=== PATIENT | male | born 2000 | race Caucasian/White ===

== ENCOUNTER 2023-06-19 07:14 | Emergency (ER) | payer OTHER, BC ==
[~2023-06-19] VITALS: Ht 190.5 cm; Wt 165.5 kg
[2023-06-19 07:25] VITALS: BP 131/92
[2023-06-19 07:44] LABS: BASO% 0.5 % (0-3); EOS% 6.3 % (0-8); HEMOGLOBIN 14.3 g/dl (14.0-18.0); IMMATURE GRANULOCYTES 0.2 % (0.0-5.0); LYMPH% 26.5 % (15-41); MEAN CELL VOLUME 91.3 fL CALC (80.0-100.0); MEAN CORPUSCULAR HGB 29.7 pG CALC (26.0-32.0); MEAN CORPUSCULAR HGB CONC 32.5 g/dL CAL (32.0-36.0); NEUT# 3.56 thou/uL (1.82-7.42); NEUT% 57.5 % (42-76); RED BLOOD COUNT 4.82 mill/uL (4.70-6.10); RED CELL DISTRI WIDTH 11.9 % (11.5-15.5)
[2023-06-19 08:01] LABS: ALBUMIN 4.3 g/dL (3.2-5.0); ALKALINE PHOSPHATASE 84 u/l (38-126); ANION GAP 14 (6-22 (CALC)); BILIRUBIN, TOTAL 0.3 mg/dL (0.2-1.3); BUN 14 mg/dL (9-20); BUN/CREATININE RATIO 20 (12-20 (CALC)); CARBON DIOXIDE 25 mmol/l (22-30); CHLORIDE 107 mmol/l (95-108); CREATININE 0.7 mg/dL (0.7-1.3); GFR FOR AFR.AMER. > 60 ML/MIN (>=60 (CALC)); GFR OTHER RACES > 60 ML/MIN (>=60 (CALC)); LIPASE 94 u/l (23-300); POTASSIUM 4.1 mmol/l (3.5-5.1); SGOT/AST 42 u/l (17-59); SODIUM 142 mmol/l (137-146); TOTAL PROTEIN 7.4 g/dL (6.3-8.2)
[2023-06-19 10:19] VITALS: BP 131/92
== END 2023-06-19 10:24 | disposition home or self-care (01) | DRG 605 ==
LOC: EDBD 07:14 → ED 07:14
PROVIDERS: Family Medicine
DX: S30.1XXA Contusion of abdominal wall, initial encounter (principal); S20.219A Contusion of unspecified front wall of thorax, initial encounter; M54.2 Cervicalgia; M25.512 Pain in left shoulder; M54.50 Low back pain, unspecified; M54.6 Pain in thoracic spine; V49.40XA Driver injured in collision with unspecified motor vehicles in traffic accident, initial encounter